=== PATIENT | female | born 1980 | race Caucasian/White ===

== ENCOUNTER 2024-06-21 08:53 | Day surgery (SDC) | payer BC ==
[~2024-06-21 08:53] MED LIST: Albuterol 0.083% 2.5 MG/3 ML Neb Soln NEB PRN; HYDROmorphone 1 MG/ML Syringe IVPUSH PRN; Metoclopramide 10 MG/2 ML SDV IVPUSH PRN; Morphine 2 MG/ML SYRINGE IVPUSH PRN; Naloxone 0.4 MG/ML SDV IVPUSH PRN; Ondansetron 4 MG/2 ML SDV IVPUSH PRN; Phenylephrine HCl In 0.9% NaCl 1 MG/10 ML Syringe IVPUSH PRN; ceFAZolin 2 GM in Sodium Chloride 0.9% 50 ML IV ONE; droPERidol 5 MG/2 ML SDV IVPUSH PRN; fentaNYL 50 MCG/ML SDV IVPUSH PRN
[2024-06-21] MEDS: Scopalamine 1mg/3day Transdermal Patch TOP ONE (09:05)
[2024-06-21] MEDS: Lactated Ringers 1,000 ML IV SCH (09:20)
[2024-06-21] MEDS ORDERED: Bupivacaine 0.5%/EPINEPHrine 1:200,000 30 ML SDV ONE (09:59)
[2024-06-21] MEDS ORDERED: dexmedeTOMIDine HCl 200 MCG/2 ML SDV ONE (10:01)
[2024-06-21] MEDS ORDERED: Propofol 200 MG/20 ML SDV ONE (10:01)
[2024-06-21] MEDS ORDERED: fentaNYL 100 MCG/2 ML SDV ONE (10:02)
[2024-06-21] MEDS ORDERED: Ondansetron 4 MG/2 ML SDV ONE (10:15)
[2024-06-21] MEDS ORDERED: Dexamethasone 4 MG/ML 5 ML MDV ONE (10:15)
[2024-06-21] MEDS ORDERED: ceFAZolin 2 GM Vial ONE (10:15)
== END 2024-06-21 12:25 | disposition home or self-care (01) ==
LOC: MW.SDS 08:53
PROVIDERS: ATTEND Orthopaedic Surgery
DX: S83.241A Other tear of medial meniscus, current injury, right knee, initial encounter (principal); M25.861 Other specified joint disorders, right knee; E66.9 Obesity, unspecified; Z79.899 Other long term (current) drug therapy; Z68.30 Body mass index [BMI] 30.0-30.9, adult
CPT/HCPCS: 29881; 81025; A9270; J0131; J0690; J1100; J2405; J2704; J3010; J7120; 01400; J3490